=== PATIENT | female | born 1970 | race Caucasian/White ===

== ENCOUNTER 2017-12-16 09:15 | Emergency (ER) | payer BC ==
--- NOTE | 2017-12-16 10:08 | UC ---
Skin Complaint HPI - HPI Summary HPI Summary: 47-year-old woman with a chief complaint of rash. She noticed 2 days ago on her abdomen. 5 days ago she had a laparoscopic hysterectomy. She was wearing a abdominal binder. When she removed it she found the rash. An erythematous raised. She reports that it moves location and appears to be hives. It is now spread to her forearms. She took Benadryl which improved the rash. The rash returned after the Benadryl wore off. She's feeling well fevers. No abdominal pain. At this time she is not on any medications. - History of Current Complaint Chief Complaint: UCRash Time Seen by Provider: 12/16/17 09:48 Stated Complaint: SKIN COMPLAINT Pain Intensity: 0 - Allergy/Home Medications Allergies/Adverse Reactions: Allergies Allergy/AdvReac Type Severity Reaction Status Date / Time amoxicillin Allergy Swelling Verified 12/16/17 09:59 Of Face,Lips,& Throat erythromycin base Allergy GI Upset Verified 12/16/17 09:59 Review of Systems Constitutional: Negative Skin: Rash Eyes: Negative ENT: Negative Respiratory: Negative Cardiovascular: Negative Gastrointestinal: Negative Genitourinary: Negative Neurovascular: Negative Musculoskeletal: Negative Neurological: Negative Psychological: Negative Is Patient Immunocompromised?: No All Other Systems Reviewed And Are Negative: Yes PMH/Surg Hx/FS Hx/Imm Hx Other Endocrine History: NO DM Other Cardiovascular History: NO CAD - Surgical History Surgical History: Yes Surgery Procedure, Year, and Place: hysterectomy 11/30 - Family History Known Family History: Positive: Cardiac Disease, Diabetes - Social History Alcohol Use: None Substance Use Type: None Smoking Status (MU): Never Smoked Tobacco Physical Exam Triage Information Reviewed: Yes Appearance: Well-Appearing, No Pain Distress, Well-Nourished Vital Signs: Initial Vital Signs Temp 99.1 F 12/16/17 09:45 Pulse 88 12/16/17 09:45 Resp 16 12/16/17 09:45 BP 109/86 12/16/17 09:45 Pulse Ox 98 12/16/17 09:45 Vital Signs Reviewed: Yes Eye Exam: Normal ENT Exam: Normal Neck: Positive: Supple Respiratory Exam: Normal Respiratory: Positive: Lungs clear, Normal breath sounds Cardiovascular: Positive: RRR Musculoskeletal Exam: Normal Musculoskeletal: Positive: Strength Intact, ROM Intact Neurological Exam: Normal Psychological Exam: Normal Skin: Positive: Other - There is scattered raised rash on both forearms. The rash blanches. Course/Dx - Course Course Of Treatment: Probable allergic reaction to the abdominal BINDER. Continue the Benadryl as needed. She can add an [id number] Claritin if helpfuL. SenT a prescription for prednisone to be used if the rash worsens. Follow up with her primary care doctor reevaluated sooner if her condition worsens - Diagnoses Provider Diagnoses: RASH Discharge - Sign-Out/Discharge Documenting (check all that apply): Patient Departure All imaging exams completed and their final reports reviewed: No Studies - Discharge Plan Condition: Stable Disposition: HOME Prescriptions: predniSONE TAB* [Deltasone 20 MG TAB*] 40 mg PO DAILY #10 tab Patient Education Materials: Acute Rash (ED) Referrals: [place] GRAY,Marcin Arguello [Primary Care Provider] - Additional Instructions: FOLLOW UP WITH YOUR DOCTOR IF NOT COMPLETELY IMPROVED. TAKE OVER THE COUNTER BENADRYL OR CLARITIN DIRECTED NEEDED IF HELPFUL. GET RECHECKED FOR ANY WORSENING OF YOUR CONDITION OR QUESTIONS OR CONCERNS. - Billing Disposition and Condition Condition: STABLE Disposition: Home
== END 2017-12-16 10:06 | disposition home or self-care (01) ==
LOC: UCCORT 09:15
DX: R21 Rash and other nonspecific skin eruption (principal); Z88.0 Allergy status to penicillin; Z88.1 Allergy status to other antibiotic agents
CPT/HCPCS: 99202; G0463